=== PATIENT | male | born 1985 | race Caucasian/White ===

== ENCOUNTER 2020-01-26 11:22 | Emergency (ER) | payer OTHER ==
[~2020-01-26] VITALS: Ht 177.8 cm; Wt 97.1 kg
--- NOTE | 2020-01-26 11:28 | NUR ---
Patient ambulated to bed 4
[2020-01-26 11:29] VITALS: BP 142/95
--- NOTE | 2020-01-26 11:42 | NUR ---
34 Y/O MALE PRESENTS WITH RIGHT FLANK/BACK PAIN BEGINNING YESTERDAY AT 2PM. PT DENIES ANY INJURY. DENIES ANY URINARY BURNING/ FREQUENCY. PAIN 7/10, SHARP, NON RADIATING. RESP EVEN AND UNLABORED. AAOX4. PATIENT DENIES TAKING ANY PAIN MEDICATIONS FOR RELIEF. ROM+. CMS+ NKA
[2020-01-26] MEDS ORDERED: IBUPROFEN 800 MG TAB PO ONE (11:45)
--- NOTE | 2020-01-26 11:57 | NUR ---
pt taken to ct via wheelchair
--- NOTE | 2020-01-26 12:04 | NUR ---
pt resting in bed, side rail x 1
[2020-01-26 12:33] VITALS: BP 142/95
--- NOTE | 2020-01-26 12:33 | NUR ---
Patient discharged with v/s stable. Written and verbal after care instructions given and explained. Patient alert, oriented and verbalized understanding of instructions. Ambulatory with steady gait. All questions addressed prior to discharge. ID band removed. Patient advised to follow up with PMD. Rx of IBUPROFEN, FLEXIRIL given. Patient educated on indication of medication including possible reaction and side effects. Opportunity to ask questions provided and answered.
== END 2020-01-26 12:33 | disposition home or self-care (01) ==
LOC: MED 11:22
DX: S39.012A Strain of muscle, fascia and tendon of lower back, initial encounter (principal); X58.XXXA Exposure to other specified factors, initial encounter; Y93.89 Activity, other specified; Y92.89 Other specified places as the place of occurrence of the external cause; Y99.8 Other external cause status
CPT/HCPCS: 99284